=== PATIENT | female | born 1945 | race Hispanic/Latino ===

== ENCOUNTER → 2018-01-12 | Outpatient (CLI) | payer OTHER ==
[~2018-01-12] MED LIST: ACET-66 PO; ASPI-555 PO; ATOR10 PO; DICY10 PO; ERGO400T3 PO; GLIP10TA9 PO; LORA10TA7 PO; METF-444 PO; METO-409 PO
== END | disposition home or self-care (01) ==
LOC: RAH 10:11
PROVIDERS: ATTEND Family Medicine
DX: Z12.31 Encounter for screening mammogram for malignant neoplasm of breast (principal)
CPT/HCPCS: 77067

== ENCOUNTER → 2019-01-13 | Outpatient (CLI) | payer OTHER | END | disposition home or self-care (01) | LOC: RAH 10:23 | PROVIDERS: ATTEND Family Medicine | DX: Z12.31 Encounter for screening mammogram for malignant neoplasm of breast (principal) | CPT/HCPCS: 77067 ==

== ENCOUNTER → 2019-01-21 | Outpatient (CLI) | payer OTHER | END | disposition home or self-care (01) | LOC: RAH 14:42 | PROVIDERS: ATTEND Family Medicine | DX: N60.01 Solitary cyst of right breast (principal) | CPT/HCPCS: 76641; 77065 ==

== ENCOUNTER → 2020-01-14 | Outpatient (CLI) | payer OTHER ==
[~2020-01-14] MED LIST changes: -ASPI-555 PO; +ASPI-556 PO
== END | disposition home or self-care (01) ==
LOC: RAH 08:11
PROVIDERS: ATTEND Family Medicine
DX: Z12.31 Encounter for screening mammogram for malignant neoplasm of breast (principal); N64.89 Other specified disorders of breast
CPT/HCPCS: 77067

== ENCOUNTER → 2022-01-25 | Outpatient (CLI) | payer OTHER | END | disposition home or self-care (01) | LOC: RAH 12:36 | PROVIDERS: ATTEND Family Medicine | DX: Z12.31 Encounter for screening mammogram for malignant neoplasm of breast (principal) | CPT/HCPCS: 77067 ==

== ENCOUNTER → 2022-07-04 | Outpatient (CLI) | payer OTHER ==
[2022-07-04 09:36] LABS: CREATININE 1.1 mg/dL (0.5-1.5)
== END | disposition home or self-care (01) ==
LOC: LAB 08:46
PROVIDERS: ATTEND Student in an Organized Health Care Education/Training Program
DX: R10.13 Epigastric pain (principal)
CPT/HCPCS: 36415; 82565; 84520

== ENCOUNTER → 2022-07-09 | Outpatient (CLI) | payer OTHER ==
[~2022-07-09] MED LIST changes: +IOHEXOL 350 MG/ML 100ML INFUS..BTL IV ONE
== END | disposition home or self-care (01) ==
LOC: RAH 07:41
PROVIDERS: ATTEND Student in an Organized Health Care Education/Training Program
DX: R10.13 Epigastric pain (principal); R22.41 Localized swelling, mass and lump, right lower limb; I25.10 Atherosclerotic heart disease of native coronary artery without angina pectoris; N32.89 Other specified disorders of bladder; M47.815 Spondylosis without myelopathy or radiculopathy, thoracolumbar region; Z90.49 Acquired absence of other specified parts of digestive tract
CPT/HCPCS: 74177; Q9967

== ENCOUNTER → 2023-10-13 | Outpatient (CLI) | payer OTHER ==
[~2023-10-13] MED LIST changes: -IOHEXOL 350 MG/ML 100ML INFUS..BTL IV ONE
== END | disposition home or self-care (01) ==
LOC: RAH 12:19
PROVIDERS: ATTEND Student in an Organized Health Care Education/Training Program
DX: I08.0 Rheumatic disorders of both mitral and aortic valves (principal); I45.10 Unspecified right bundle-branch block; C77.4 Secondary and unspecified malignant neoplasm of inguinal and lower limb lymph nodes
CPT/HCPCS: 93306

== ENCOUNTER → 2024-08-13 | Outpatient (CLI) | payer OTHER ==
[~2024-08-13] MED LIST changes: +GADOTERATE MEGLUMINE 5 MMOL/10 ML VIAL IV ONE; +GLIP10TA16 PO; -GLIP10TA9 PO
--- NOTE | 2024-08-13 14:41 | HMCIMG ---
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 The mass now has an intra-abdominal component which has developed in the interval since the prior examination. The mass now measures a combined 31 cm in length including the extremity and intra-abdominal components of the mass, with maximum diameter of at least 8 cm. In addition, the axial images demonstrate a secondary mass arising from the subcutaneous tissues of the right lateral pelvis, lateral to the iliac bone, measuring at least 8.5 x 7.2 cm. The mass is complex with solid and necrotic components and shows inhomogeneous enhancement after gadolinium administration. I believe we are being with a combination of extension of the primary mass and significant surrounding lymphadenopathy. The right pelvic bones are abnormal. There is high signal intensity of the subchondral femoral head and acetabular cup and I believe this may be related to radiotherapy or interval development of degenerative changes. No pathologic fractures are seen and the rest of the bones are preserved. IMPRESSION: Interval significant growth of the previously identified right proximal anterior thigh mass as noted.
== END | disposition home or self-care (01) ==
LOC: RAH 12:49
PROVIDERS: ATTEND Orthopaedic Surgery
DX: C49.9 Malignant neoplasm of connective and soft tissue, unspecified (principal); R19.00 Intra-abdominal and pelvic swelling, mass and lump, unspecified site; R22.41 Localized swelling, mass and lump, right lower limb; I96 Gangrene, not elsewhere classified
CPT/HCPCS: 72197; A9575

== ENCOUNTER → 2024-08-19 | Outpatient (CLI) | payer OTHER ==
--- NOTE | 2024-08-19 12:33 | HMCIMG ---
MR HIP RIGHT WWO HISTORY: Malignant neoplasm of connective tissue COMPARISON: None TECHNIQUE: MRI of the right hip was performed utilizing multiple pulse sequences in axial, coronal and sagittal planes. Patient was given 10 cc of Clariscan through intravenous route. FINDINGS: There is abnormal decreased signal intensity area with enhancement near the lesser trochanter and the femoral head of left proximal femur. This may be related to bone edema versus neoplastic process. 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 No definite fracture or dislocation is suspected. IMPRESSION: 1. There is abnormal decreased signal intensity area with enhancement near the lesser trochanter and the femoral head of left proximal femur. This may be related to bone edema versus neoplastic process. 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
== END | disposition home or self-care (01) ==
LOC: RAH 08:35
PROVIDERS: ATTEND Orthopaedic Surgery
DX: C49.9 Malignant neoplasm of connective and soft tissue, unspecified (principal); M87.9 Osteonecrosis, unspecified; M79.89 Other specified soft tissue disorders
CPT/HCPCS: 73723; A9575